=== PATIENT | female | born 1960 | race American Indian/Alaskan Native ===

== ENCOUNTER 2017-03-30 21:40 | Emergency (ER) | payer MEDICARE ==
[2017-03-30 22:45] VITALS: BP 171/106
[2017-03-30 23:09] LABS: Hematocrit 37.6 % (30.3-42.9); Hemoglobin 12.7 gm/dl (10.1-14.3); Mean Corpuscular HGB Conc 34 % (30-34); Mean Corpuscular Hemoglobin 31 pg (28-32); Mean Corpuscular Volume 91 fl (79-97); Platelet Count 355 K/mm3 (140-440); Red Blood Count 4.12 M/mm3 (3.65-5.03); White Blood Count 13.4 K/mm3 (4.5-11.0)
[2017-03-30 23:29] LABS: Anion Gap 24 mmol/L; BUN/Creatinine Ratio 13; Blood Urea Nitrogen 12 mg/dL (7-17); Calcium 9.3 mg/dL (8.4-10.2); Carbon Dioxide 24 mmol/L (22-30); Chloride 95.4 mmol/L (98-107); Glucose 113 mg/dL (65-100); Potassium 3.7 mmol/L (3.6-5.0); Sodium 140 mmol/L (137-145)
[2017-03-30 23:37] LABS: Urine Drugs of Abuse Note Disclamer
[2017-03-30 23:44] LABS: Blastocytes % (Manual) 0 %; Diff Status Complete; Platelet Estimate Consistent w Auto; RBC Morphology Normal
[2017-03-30 23:55] LABS: Bacteria,Urine 1+ /HPF (Negative); Bilirubin,Urine NEG (Negative); Blood,Urine NEG (Negative); Ketones,Urine NEG (Negative); Leukocyte Esterase,Urine MOD (Negative); Mucus,Urine FEW /HPF; Nitrite,Urine NEG (Negative); Protein,Urine <15 mg/dL mg/dL (Negative)
--- NOTE | 2017-03-31 08:42 | Emergency Department Report ---
ED General Adult HPI - General Chief complaint: Headache Stated complaint: H/A Time Seen by Provider: 03/31/17 06:18 Source: patient, family Mode of arrival: Ambulatory Limitations: No Limitations - History of Present Illness Initial comments: The patient is NOT complaining of a headache at all. Matter of fact she is asymptomatic. She states that she has run out of her blood pressure medicine. She is accompanied by a sister who is stating that they are having difficulty taking care of her. She has recently moved here from [place] the sister states a week ago but I think this is not actually accurate. She is currently under the care of a psychiatrist. According to the sister she has if her son is still alive not infrequently. However the son is "a drug addict and [place] ". The patient herself is not having any paranoid ideation. She is not agitated. She is committed act. she is not currently complaining of symptoms of depression or having any sort of suicidal ideation. -: Gradual Consistency: intermittent Improves with: none Worsens with: none Associated Symptoms: denies other symptoms - Related Data Home Medications Medication Instructions Recorded Confirmed Last Taken Aspirin [Aspirin TAB] 325 mg PO QDAY 09/02/14 06/07/16 09/02/14 Butalb/Acetamin/Caff 50-325-40 1 tab PO Q6HR PRN 08/18/15 06/07/16 Unknown [Fioricet] Nortriptyline [Pamelor] 50 mg PO QHS 08/18/15 06/07/16 Unknown Lyrica 1 tab PO DAILY 02/08/16 06/07/16 Unknown Fenofibrate [Lofibra] 54 mg PO QDAY 06/07/16 06/07/16 Unknown traMADol [Ultram] 50 mg PO Q12H PRN 06/07/16 06/07/16 Unknown Previous Rx's Medication Instructions Recorded Last Taken Type Simvastatin [Zocor TAB] 40 mg PO QHS #30 tablet 08/08/14 09/01/14 Rx oxyCODONE /ACETAMINOPHEN [Percocet 1 tab PO Q6HR PRN #10 tablet 02/08/16 Unknown Rx 5/325 mg] Gabapentin [Neurontin] 300 mg PO BID #60 capsule 03/31/17 Unknown Rx Lisinopril [Zestril TAB] 20 mg PO QDAY #30 tablet 03/31/17 Unknown Rx Nitrofurantoin Monohyd/M-Cryst 100 mg PO BID #10 capsule 03/31/17 Unknown Rx [Macrobid 100 mg Capsule] amLODIPine [Norvasc] 5 mg PO DAILY #30 tab 03/31/17 Unknown Rx Allergies Allergy/AdvReac Type Severity Reaction Status Date / Time Penicillins Allergy Rash Verified 01/24/15 18:51 ED Review of Systems ROS: Stated complaint: H/A Other details as noted in HPI Constitutional: denies: chills, fever Eyes: denies: eye pain, eye discharge, vision change ENT: denies: ear pain, throat pain Respiratory: denies: cough, shortness of breath, wheezing Cardiovascular: denies: chest pain, palpitations Endocrine: no symptoms reported Gastrointestinal: denies: abdominal pain, nausea, diarrhea Genitourinary: denies: urgency, dysuria, discharge Musculoskeletal: denies: back pain, joint swelling, arthralgia Skin: denies: rash, lesions Neurological: denies: headache, weakness, paresthesias Psychiatric: other (according to family paranoid ideation. The patient is not displaying this in the emergency department.). denies: anxiety, depression, auditory hallucinations, visual hallucinations, homicidal thoughts, suicidal thoughts Hematological/Lymphatic: denies: easy bleeding, easy bruising ED Past Medical Hx - Past Medical History Previous Medical History?: Yes Hx Hypertension: Yes Hx CVA: Yes (multiple CVAs per patient) Hx Congestive Heart Failure: No Hx Diabetes: Yes Hx Arthritis: Yes Hx Seizures: Yes Hx Asthma: No Additional medical history: chronic back and neck pain. anyerism. brain tumor - Surgical History Past Surgical History?: Yes Hx Cholecystectomy: Yes Additional Surgical History: Left ear surgery - Social History Smoking Status: Current Every Day Smoker Substance Use Type: None - Medications Home Medications: Home Medications Medication Instructions Recorded Confirmed Last Taken Type Simvastatin [Zocor TAB] 40 mg PO QHS #30 tablet 08/08/14 06/07/16 09/01/14 Rx Aspirin [Aspirin TAB] 325 mg PO QDAY 09/02/14 06/07/16 09/02/14 History Butalb/Acetamin/Caff 50-325-40 1 tab PO Q6HR PRN 08/18/15 06/07/16 Unknown History [Fioricet] Nortriptyline [Pamelor] 50 mg PO QHS 08/18/15 06/07/16 Unknown History Lyrica 1 tab PO DAILY 02/08/16 06/07/16 Unknown History oxyCODONE /ACETAMINOPHEN [Percocet 1 tab PO Q6HR PRN #10 tablet 02/08/16 Unknown Rx 5/325 mg] Fenofibrate [Lofibra] 54 mg PO QDAY 06/07/16 06/07/16 Unknown History traMADol [Ultram] 50 mg PO Q12H PRN 06/07/16 06/07/16 Unknown History Gabapentin [Neurontin] 300 mg PO BID #60 capsule 03/31/17 Unknown Rx Lisinopril [Zestril TAB] 20 mg PO QDAY #30 tablet 03/31/17 Unknown Rx Nitrofurantoin Monohyd/M-Cryst 100 mg PO BID #10 capsule 03/31/17 Unknown Rx [Macrobid 100 mg Capsule] amLODIPine [Norvasc] 5 mg PO DAILY #30 tab 03/31/17 Unknown Rx ED Physical Exam - General Limitations: No Limitations General appearance: alert, in no apparent distress - Head Head exam: Present: atraumatic, normocephalic - Eye Eye exam: Present: normal appearance - ENT ENT exam: Present: normal exam, mucous membranes moist - Neck Neck exam: Present: normal inspection. Absent: tenderness, meningismus - Respiratory Respiratory exam: Present: normal lung sounds bilaterally. Absent: respiratory distress - Cardiovascular Cardiovascular Exam: Present: regular rate, normal rhythm. Absent: systolic murmur, diastolic murmur, rubs, gallop - GI/Abdominal GI/Abdominal exam: Present: soft, normal bowel sounds. Absent: distended, tenderness, guarding, rebound, rigid - Extremities Exam Extremities exam: Present: normal inspection - Back Exam Back exam: Present: normal inspection - Neurological Exam Neurological exam: Present: alert, oriented X3, CN II-XII intact, normal gait. Absent: motor sensory deficit - Psychiatric Psychiatric exam: Present: normal affect, normal mood - Skin Skin exam: Present: warm, dry, intact, normal color. Absent: rash ED Course Vital Signs 03/30/17 22:32 Temperature 98.2 F Pulse Rate 82 Respiratory 18 Rate Blood Pressure 171/106 O2 Sat by Pulse 98 Oximetry - Reevaluation(s) Reevaluation #1: The patient has now been evaluated by the mental health counselor. She tells me that indeed, the patient is already at the care of a psychiatrist here locally. She confirms that there is no indication for hospitalization. Additionally she states that the family is ready to take the patient home. This visit seems to be largely the result of social issues. There is no criteria for mental health confinement. 03/31/17 08:41 ED Medical Decision Making - Lab Data Result diagrams: 03/30/17 22:56 03/30/17 22:56 Laboratory Results - last 24 hr 03/30/17 03/30/17 03/30/17 22:56 22:56 22:56 WBC 13.4 H RBC 4.12 Hgb 12.7 Hct 37.6 MCV 91 MCH 31 MCHC 34 RDW 14.0 Plt Count 355 Lymph # Forging Press Setter Up Add Manual Diff Complete Total Counted 100 Seg Neuts % (Manual) 59.0 Band Neutrophils % 0 Lymphocytes % (Manual) 33.0 Reactive Lymphs % (Man) 0 Monocytes % (Manual) 6.0 Eosinophils % (Manual) 1.0 Basophils % (Manual) 1.0 Metamyelocytes % 0 Myelocytes % 0 Promyelocytes % 0 Blast Cells % 0 Nucleated RBC % Not Reportable Seg Neutrophils # Man 7.9 H Band Neutrophils # 0.0 Lymphocytes # (Manual) 4.4 Abs React Lymphs (Man) 0.0 Monocytes # (Manual) 0.8 Eosinophils # (Manual) 0.1 Basophils # (Manual) 0.1 Metamyelocytes # 0.0 Myelocytes # 0.0 Promyelocytes # 0.0 Blast Cells # 0.0 WBC Morphology Not Reportable Hypersegmented Neuts Not Reportable Hyposegmented Neuts Not Reportable Hypogranular Neuts Not Reportable Smudge Cells Not Reportable Toxic Granulation Not Reportable Toxic Vacuolation Not Reportable Dohle Bodies Not Reportable Pelger-Huet Anomaly Not Reportable Sunday Rods Not Reportable Platelet Estimate Consistent w auto Clumped Platelets Not Reportable Plt Clumps, EDTA Not Reportable Large Platelets Not Reportable Giant Platelets Not Reportable Platelet Satelliting Not Reportable Plt Morphology Comment Not Reportable RBC Morphology Normal Dimorphic RBCs Not Reportable Polychromasia Not Reportable Hypochromasia Not Reportable Poikilocytosis Not Reportable Anisocytosis Not Reportable Microcytosis Not Reportable Macrocytosis Not Reportable Spherocytes Not Reportable Pappenheimer Bodies Not Reportable Sickle Cells Not Reportable Target Cells Not Reportable Tear Drop Cells Not Reportable Ovalocytes Not Reportable Helmet Cells Not Reportable [place] Bodies Not Reportable Weir Rings Not Reportable Rose Cells Not Reportable Bite Cells Not Reportable Crenated Cell Not Reportable Elliptocytes Not Reportable Acanthocytes (Spur) Not Reportable Rouleaux Not Reportable Hemoglobin C Crystals Not Reportable Schistocytes Not Reportable Malaria parasites Not Reportable Bryan Bodies Not Reportable Hem Pathologist Commnt No Sodium 140 Potassium 3.7 Chloride 95.4 L Carbon Dioxide 24 Anion Gap 24 BUN 12 Creatinine 0.9 Estimated GFR > 60 BUN/Creatinine Ratio 13 Glucose 113 H Calcium 9.3 Urine Color Urine Turbidity Urine pH Ur Specific [place] Urine Protein Urine Glucose (UA) Urine Ketones Urine Blood Urine Nitrite Urine Bilirubin Urine Urobilinogen Ur Leukocyte Esterase Urine WBC (Auto) Urine RBC (Auto) U Epithel Cells (Auto) Urine Bacteria (Auto) Hyaline Casts Urine Mucus Urine Opiates Screen Urine Methadone Screen Ur Barbiturates Screen Ur Phencyclidine Scrn Ur Amphetamines Screen U Benzodiazepines Scrn Urine Cocaine Screen U Marijuana (THC) Screen Drugs of Abuse Note Plasma/Serum Alcohol < 0.01 03/30/17 03/30/17 23:19 23:19 WBC RBC Hgb Hct MCV MCH MCHC RDW Plt Count Lymph # Add Manual Diff Total Counted Seg Neuts % (Manual) Band Neutrophils % Lymphocytes % (Manual) Reactive Lymphs % (Man) Monocytes % (Manual) Eosinophils % (Manual) Basophils % (Manual) Metamyelocytes % Myelocytes % Promyelocytes % Blast Cells % Nucleated RBC % Seg Neutrophils # Man Band Neutrophils # Lymphocytes # (Manual) Abs React Lymphs (Man) Monocytes # (Manual) Eosinophils # (Manual) Basophils # (Manual) Metamyelocytes # Myelocytes # Promyelocytes # Blast Cells # WBC Morphology Hypersegmented Neuts Hyposegmented Neuts Hypogranular Neuts Smudge Cells Toxic Granulation Toxic Vacuolation Dohle Bodies Pelger-Huet Anomaly Sunday Rods Platelet Estimate Clumped Platelets Plt Clumps, EDTA Large Platelets Giant Platelets Platelet Satelliting Plt Morphology Comment RBC Morphology Dimorphic RBCs Polychromasia Hypochromasia Poikilocytosis Anisocytosis Microcytosis Macrocytosis Spherocytes Pappenheimer Bodies Sickle Cells Target Cells Tear Drop Cells Ovalocytes Helmet Cells [place] Bodies Weir Rings Rose Cells Bite Cells Crenated Cell Elliptocytes Acanthocytes (Spur) Rouleaux Hemoglobin C Crystals Schistocytes Malaria parasites Bryan Bodies Hem Pathologist Commnt Sodium Potassium Chloride Carbon Dioxide Anion Gap BUN Creatinine Estimated GFR BUN/Creatinine Ratio Glucose Calcium Urine Color Yellow Urine Turbidity Clear Urine pH 5.[address] 1.013 Urine Protein <15 mg/dl Urine Glucose (UA) Neg Urine Ketones Neg Urine Blood Neg Urine Nitrite Neg Urine Bilirubin Neg Urine Urobilinogen 2.0 Ur Leukocyte Esterase Mod Urine WBC (Auto) 16.0 H Urine RBC (Auto) 4.0 U Epithel Cells (Auto) < 1.0 Urine Bacteria (Auto) 1+ Hyaline Casts 1 Urine Mucus Few Urine Opiates Screen Presumptive negative Urine Methadone Screen Presumptive negative Ur Barbiturates Screen Presumptive negative Ur Phencyclidine Scrn Presumptive negative Ur Amphetamines Screen Presumptive negative U Benzodiazepines Scrn Presumptive negative Urine Cocaine Screen Presumptive negative U Marijuana (THC) Screen Presumptive negative Drugs of Abuse Note Disclamer Plasma/Serum Alcohol Critical care attestation.: If time is entered above; I have spent that time in minutes in the direct care of this critically ill patient, excluding procedure time. ED Disposition Clinical Impression: Psychiatric disorder Hypertension Qualifiers: Hypertension type: essential hypertension Qualified Code(s): I10 - Essential ( primary) hypertension UTI (urinary tract infection) Qualifiers: Urinary tract infection type: site unspecified Hematuria presence: without hematuria Qualified Code(s): N39.0 - Urinary tract infection, site not specified Disposition: DC-01 TO HOME OR SELFCARE Is pt being admited?: No Does the pt Need Aspirin: No Condition: Stable Instructions: Hypertension (ED) Additional Instructions: Follow-up with the urinary usual psychiatrist. You appeared to have a mild urinary infection. Given urine antibiotic. I have also renewed your blood pressure medicine. He must follow-up with a primary care provider. If you do not have one he might consider [facility] or Dr. Lashell Archer who is environmental programs specialist Prescriptions: amLODIPine [Norvasc] 5 mg PO DAILY #30 tab Gabapentin [Neurontin] 300 mg PO BID #60 capsule Lisinopril [Zestril TAB] 20 mg PO QDAY #30 tablet Nitrofurantoin Monohyd/M-Cryst [Macrobid 100 mg Capsule] 100 mg PO BID #10 capsule Referrals: PRIMARY CARE, [Primary Care Provider] - 3-5 Days ADRIANA ARCHER MD [Staff Physician] - 3-5 Days [facility] [Provider Group] - 3-5 Days usual, psychiatrist [Other] - 2-3 Days Time of Disposition: 08:47
== END 2017-03-31 09:08 | disposition home or self-care (01) ==
LOC: ED 21:40
DX: I10 Essential (primary) hypertension (principal); N39.0 Urinary tract infection, site not specified; E11.9 Type 2 diabetes mellitus without complications; F17.200 Nicotine dependence, unspecified, uncomplicated
CPT/HCPCS: 36415; 80048; 80307; 81001; 85007; 85025; 99283; G0480; 80320

== ENCOUNTER 2017-10-04 23:10 | Emergency (ER) | payer MEDICARE ==
[2017-10-04 23:33] LABS: Hematocrit 38.5 % (30.3-42.9); Hemoglobin 12.6 gm/dl (10.1-14.3); Mean Corpuscular HGB Conc 33 % (30-34); Mean Corpuscular Hemoglobin 30 pg (28-32); Mean Corpuscular Volume 92 fl (79-97); Platelet Count 283 K/mm3 (140-440); Red Cell Distribution Width 14.6 % (13.2-15.2)
[2017-10-04 23:43] LABS: INR 0.92 (0.87-1.13)
[2017-10-04 23:45] LABS: BUN/Creatinine Ratio 21; Blood Urea Nitrogen 19 mg/dL (7-17); Calcium 8.8 mg/dL (8.4-10.2); Hemolysis Index 0
--- NOTE | 2017-10-04 23:50 | Emergency Department Report ---
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 Pt's speech is garbled and difficult to understand. Pt had almost fallen, was stumbling, but did not fall. Pt 's sister stated this is the same presentation that the pt had in the past with her speech. Pt does drink alcohol per the sister and sister stated the pt does things that she is "hard-headed" and does what she wants even though it is not good for her health. Pt states she does smoke.Pt sees Dr Awad as her neurologist. Last Observed Normal: 21:30 Location: speech History of same: Yes (pt states that she had left sided weakness in the past) - Related Data Home Medications: Home Medications Medication Instructions Recorded Confirmed Last Taken Aspirin [Aspirin TAB] 325 mg PO QDAY 09/02/14 06/07/16 09/02/14 Butalb/Acetamin/Caff 50-325-40 1 tab PO Q6HR PRN 08/18/15 06/07/16 Unknown [Fioricet] Nortriptyline [Pamelor] 50 mg PO QHS 08/18/15 06/07/16 Unknown Lyrica 1 tab PO DAILY 02/08/16 06/07/16 Unknown Fenofibrate [Lofibra] 54 mg PO QDAY 06/07/16 06/07/16 Unknown traMADol [Ultram] 50 mg PO Q12H PRN 06/07/16 06/07/16 Unknown Previous Rx's Medication Instructions Recorded Last Taken Type Simvastatin [Zocor TAB] 40 mg PO QHS #30 tablet 08/08/14 09/01/14 Rx oxyCODONE /ACETAMINOPHEN [Percocet 1 tab PO Q6HR PRN #10 tablet 02/08/16 Unknown Rx 5/325 mg] Gabapentin [Neurontin] 300 mg PO BID #60 capsule 03/31/17 Unknown Rx Lisinopril [Zestril TAB] 20 mg PO QDAY #30 tablet 03/31/17 Unknown Rx Nitrofurantoin Monohyd/M-Cryst 100 mg PO BID #10 capsule 03/31/17 Unknown Rx [Macrobid 100 mg Capsule] amLODIPine [Norvasc] 5 mg PO DAILY #30 tab 03/31/17 Unknown Rx Allergies/Adverse Reactions: Allergies Allergy/AdvReac Type Severity Reaction Status Date / Time Penicillins Allergy Rash Verified 01/24/15 18:51 ED Review of Systems ROS: Stated complaint: POSSIBLE CVA Other details as noted in HPI Comment: Unobtainable due to pts medical conditions ED Past Medical Hx - Past Medical History Previous Medical History?: Yes Hx Hypertension: Yes Hx CVA: Yes (multiple CVAs per patient) Hx Congestive Heart Failure: No Hx Diabetes: Yes Hx Arthritis: Yes Hx Seizures: Yes Hx Asthma: No Additional medical history: chronic back and neck pain. anyerism. brain tumor (meningioma ) - Surgical History Past Surgical History?: Yes Hx Cholecystectomy: Yes Additional Surgical History: Left ear surgery - Social History Smoking Status: Current Every Day Smoker Substance Use Type: None - Medications Home Medications: Home Medications Medication Instructions Recorded Confirmed Last Taken Type Simvastatin [Zocor TAB] 40 mg PO QHS #30 tablet 08/08/14 06/07/16 09/01/14 Rx Aspirin [Aspirin TAB] 325 mg PO QDAY 09/02/14 06/07/16 09/02/14 History Butalb/Acetamin/Caff 50-325-40 1 tab PO Q6HR PRN 08/18/15 06/07/16 Unknown History [Fioricet] Nortriptyline [Pamelor] 50 mg PO QHS 08/18/15 06/07/16 Unknown History Lyrica 1 tab PO DAILY 02/08/16 06/07/16 Unknown History oxyCODONE /ACETAMINOPHEN [Percocet 1 tab PO Q6HR PRN #10 tablet 02/08/16 Unknown Rx 5/325 mg] Fenofibrate [Lofibra] 54 mg PO QDAY 06/07/16 06/07/16 Unknown History traMADol [Ultram] 50 mg PO Q12H PRN 06/07/16 06/07/16 Unknown History Gabapentin [Neurontin] 300 mg PO BID #60 capsule 03/31/17 Unknown Rx Lisinopril [Zestril TAB] 20 mg PO QDAY #30 tablet 03/31/17 Unknown Rx Nitrofurantoin Monohyd/M-Cryst 100 mg PO BID #10 capsule 03/31/17 Unknown Rx [Macrobid 100 mg Capsule] amLODIPine [Norvasc] 5 mg PO DAILY #30 tab 03/31/17 Unknown Rx ED Neuro Physical Exam - General Limitations: No Limitations General appearance: alert, in no apparent distress - Eye Eye exam: Present: normal appearance, PERRL - ENT ENT exam: Present: normal exam, normal orophraynx - Neck Neck exam: Present: normal inspection - Respiratory Respiratory exam: Present: normal lung sounds bilaterally - Cardiovascular Cardiovascular Exam: Present: regular rate, normal rhythm ED Course Vital Signs 10/04/17 10/04/17 10/04/17 23:10 23:40 23:46 Temperature 98.1 F Pulse Rate 81 77 74 Respiratory 16 14 15 Rate Blood Pressure 135/95 O2 Sat by Pulse 95 97 97 Oximetry 10/05/17 10/05/17 10/05/17 00:00 00:16 00:30 Temperature Pulse Rate 76 75 74 Respiratory 15 20 18 Rate Blood Pressure 169/89 169/89 169/87 O2 Sat by Pulse 95 94 96 Oximetry 10/05/17 00:45 Temperature Pulse Rate 71 Respiratory 20 Rate Blood Pressure 150/65 O2 Sat by Pulse 96 Oximetry - Lab Data Result diagrams: 10/04/17 23:21 10/04/17 23:21 Lab Results 10/04/17 10/04/17 10/04/17 Range/Units 23:21 23:21 23:21 WBC 11.4 H (4.5-11.0) K/mm3 RBC 4.20 (3.65-5.03) M/mm3 Hgb 12.6 (10.1-14.3) gm/dl Hct 38.5 (30.3-42.9) % MCV 92 (79-97) fl MCH 30 (28-32) pg MCHC 33 (30-34) % RDW 14.6 (13.2-15.2) % Plt Count 283 (140-440) K/mm3 Lymph # [employer] Supervisor Add Manual Diff Complete Total Counted 100 Seg Neuts % (Manual) 43.0 (40.0-70.0) % Band Neutrophils % 0 % Lymphocytes % (Manual) 48.0 H (13.4-35.0) % Reactive Lymphs % (Man) 0 % Monocytes % (Manual) 5.0 (0.0-7.3) % Eosinophils % (Manual) 3.0 (0.0-4.3) % Basophils % (Manual) 1.0 (0.0-1.8) % Metamyelocytes % 0 % Myelocytes % 0 % Promyelocytes % 0 % Blast Cells % 0 % Nucleated RBC % Not Reportable Seg Neutrophils # Man 4.9 (1.8-7.7) K/mm3 Band Neutrophils # 0.0 K/mm3 Lymphocytes # (Manual) 5.5 H (1.2-5.4) K/mm3 Abs React Lymphs (Man) 0.0 K/mm3 Monocytes # (Manual) 0.6 (0.0-0.8) K/mm3 Eosinophils # (Manual) 0.3 (0.0-0.4) K/mm3 Basophils # (Manual) 0.1 (0.0-0.1) K/mm3 Metamyelocytes # 0.0 K/mm3 Myelocytes # 0.0 K/mm3 Promyelocytes # 0.0 K/mm3 Blast Cells # 0.0 K/mm3 WBC Morphology Not Reportable Hypersegmented Neuts Not Reportable Hyposegmented Neuts Not Reportable Hypogranular Neuts Not Reportable Smudge Cells Not Reportable Toxic Granulation Not Reportable Toxic Vacuolation Not Reportable Dohle Bodies Not Reportable Pelger-Huet Anomaly Not Reportable Sunday Rods Not Reportable Platelet Estimate Consistent w auto Clumped Platelets Not Reportable Plt Clumps, EDTA Not Reportable Large Platelets Not Reportable Giant Platelets Not Reportable Platelet Satelliting Not Reportable Plt Morphology Comment Not Reportable RBC Morphology Normal Dimorphic RBCs Not Reportable Polychromasia Not Reportable Hypochromasia Not Reportable Poikilocytosis Not Reportable Anisocytosis Not Reportable Microcytosis Not Reportable Macrocytosis Not Reportable Spherocytes Not Reportable Pappenheimer Bodies Not Reportable Sickle Cells Not Reportable Target Cells Not Reportable Tear Drop Cells Not Reportable Ovalocytes Not Reportable Helmet Cells Not Reportable [place] Bodies Not Reportable [place] Rings Not Reportable [place] Cells Not Reportable Bite Cells Not Reportable Crenated Cell Not Reportable Elliptocytes Not Reportable Acanthocytes (Spur) Not Reportable Rouleaux Not Reportable Hemoglobin C Crystals Not Reportable Schistocytes Not Reportable Malaria parasites Not Reportable Bryan Bodies Not Reportable Hem Pathologist Commnt No PT 12.8 (12.2-14.9) Sec. INR 0.92 (0.87-1.13) APTT 30.0 (24.2-36.6) Sec. Thrombin Time (15.1-19.6) Sec. Sodium 137 (137-145) mmol/L Potassium 3.9 (3.6-5.0) mmol/L Chloride 99.8 (98-107) mmol/L Carbon Dioxide 23 (22-30) mmol/L Anion Gap 18 mmol/L BUN 19 H (7-17) mg/dL Creatinine 0.9 (0.7-1.2) mg/dL Estimated GFR > 60 ml/min BUN/Creatinine Ratio 21 % Glucose 95 (65-100) mg/dL Calcium 8.8 (8.4-10.2) mg/dL Troponin T < 0.010 (0.00-0.029) ng/mL 10/04/17 Range/Units 23:21 WBC (4.5-11.0) K/mm3 RBC (3.65-5.03) M/mm3 Hgb (10.1-14.3) gm/dl Hct (30.3-42.9) % MCV (79-97) fl MCH (28-32) pg MCHC (30-34) % RDW (13.2-15.2) % Plt Count (140-440) K/mm3 Lymph # Add Manual Diff Total Counted Seg Neuts % (Manual) (40.0-70.0) % Band Neutrophils % % Lymphocytes % (Manual) (13.4-35.0) % Reactive Lymphs % (Man) % Monocytes % (Manual) (0.0-7.3) % Eosinophils % (Manual) (0.0-4.3) % Basophils % (Manual) (0.0-1.8) % Metamyelocytes % % Myelocytes % % Promyelocytes % % Blast Cells % % Nucleated RBC % Seg Neutrophils # Man (1.8-7.7) K/mm3 Band Neutrophils # K/mm3 Lymphocytes # (Manual) (1.2-5.4) K/mm3 Abs React Lymphs (Man) K/mm3 Monocytes # (Manual) (0.0-0.8) K/mm3 Eosinophils # (Manual) (0.0-0.4) K/mm3 Basophils # (Manual) (0.0-0.1) K/mm3 Metamyelocytes # K/mm3 Myelocytes # K/mm3 Promyelocytes # K/mm3 Blast Cells # K/mm3 WBC Morphology Hypersegmented Neuts Hyposegmented Neuts Hypogranular Neuts Smudge Cells Toxic Granulation Toxic Vacuolation Dohle Bodies Pelger-Huet Anomaly Sunday Rods Platelet Estimate Clumped Platelets Plt Clumps, EDTA Large Platelets Giant Platelets Platelet Satelliting Plt Morphology Comment RBC Morphology Dimorphic RBCs Polychromasia Hypochromasia Poikilocytosis Anisocytosis Microcytosis Macrocytosis Spherocytes Pappenheimer Bodies Sickle Cells Target Cells Tear Drop Cells Ovalocytes Helmet Cells [place] Bodies [place] Rings Rose Cells Bite Cells Crenated Cell Elliptocytes Acanthocytes (Spur) Rouleaux Hemoglobin C Crystals Schistocytes Malaria parasites Bryan Bodies Hem Pathologist Commnt PT (12.2-14.9) Sec. INR (0.87-1.13) APTT (24.2-36.6) Sec. Thrombin Time 15.9 (15.1-19.6) Sec. Sodium (137-145) mmol/L Potassium (3.6-5.0) mmol/L Chloride (98-107) mmol/L Carbon Dioxide (22-30) mmol/L Anion Gap mmol/L BUN (7-17) mg/dL Creatinine (0.7-1.2) mg/dL Estimated GFR ml/min BUN/Creatinine Ratio % Glucose (65-100) mg/dL Calcium (8.4-10.2) mg/dL Troponin T (0.00-0.029) ng/mL - EKG Data -: EKG Interpreted by Me EKG shows normal: sinus rhythm Rate: normal Interpretation: no acute changes - Medical Decision Making * I am speaking with Dr Awad at 0014; Dr Guillen is revieweing his records on this pt;he noted pt had right sided weakness in the past; he stated pt had a small aneurysm and a meningioma; he stated that he would give the TPA and that he wasn 't aware of that being a contraindication to giving TPA. He stated that I could run it by Teleneurology 0034-awaiting Dr Tiwari to call back I spoke with Dr Tiwari and he recommended CTA which was ordered; the correctional maintenance technician informed me that the pt told her that she had hives when she received contrast in the past, so CTA brain was not done. 0017-Dr Cedillo(admitting hospitalist) is here seeing pt and states that he is discharging the pt as he does not feel the pt had an acute stroke and that all her symtoms are old; I was admitting the pt, but Dr Cedillo feels pt should be discharged . I also did inform Dr Tiwari of this plan . - Differential Diagnosis cva, tia, cerebral - Thrombolytic Inclusion/Exclusion Thrombolytic Contraindications: Hx of ICH/AVM/Aneurysms Critical care attestation.: If time is entered above; I have spent that time in minutes in the direct care of this critically ill patient, excluding procedure time. ED Disposition Clinical Impression: Speech abnormality, Right sided weakness Disposition: DC-[id number] OP ADMIT IP TO THIS HOSP Is pt being admited?: Yes Does the pt Need Aspirin: Yes Condition: Stable
--- NOTE | 2017-10-04 23:59 | Cat Scan Report ---
FINAL REPORT EXAM: CT HEAD/BRAIN WO CON HISTORY: neuro deficits < 6hrs or sx present upon awakening SLURRE SPEECH TECHNIQUE: CT was performed from the foramen magnum through the vertex in the axial plane without the use of intravenous contrast. PRIORS: 06/07/2016 and 08/18/2015 FINDINGS: There is a stable 1.2 cm calcified left temporal dural-based mass most likely representing a meningioma. The vasquez/white matter attenuation pattern is normal. There are no abnormal extra-axial fluid collections. There is no evidence of acute intracranial hemorrhage or infarct. The ventricles are of normal size and configuration. The skull and orbits are unremarkable. The visualized paranasal sinuses are clear. IMPRESSION: No acute findings Stable 1.2 cm calcified left temporal dural-based mass most likely representing a meningioma. A verbal report was given by phone by Damon Horn to Dr. Rodriguez at 11:51 p.m. eastern daylight time.
[2017-10-05 00:21] LABS: Platelet Estimate Consistent w Auto; RBC Morphology Normal; Total Cells Counted 100
[2017-10-05] MEDS ORDERED: BABY ASPIRIN PO ONE (00:54)
--- NOTE | 2017-10-05 01:16 | Event Note ---
Date: 10/05/17 Patient with Dysarthria and rt sided Weakness No new deficits Rt Hemiparesis d/c Home f/u with Dr Awad
[2017-10-05 01:26] VITALS: BP 156/68
== END 2017-10-05 02:25 | disposition admitted as inpatient to this hospital (09) ==
LOC: ED 23:10
DX: R53.1 Weakness (principal); R47.81 Slurred speech; I10 Essential (primary) hypertension; E11.9 Type 2 diabetes mellitus without complications; F17.200 Nicotine dependence, unspecified, uncomplicated
CPT/HCPCS: 36415; 70450; 80048; 84484; 85007; 85025; 85610; 85670; 85730; 93005; 93010

== ENCOUNTER 2018-11-16 09:07 | Outpatient (CLI) | payer OTHER, MEDICARE ==
--- NOTE | 2018-11-16 09:51 | Mammography Report ---
Left mammogram: Call back for left asymmetry. No prior exams. Spot CC compression, rolled CC views and lateral whole breast compression imaging obtained. Additional images shows no suspicious findings or significant asymmetry. Impression: Benign findings. Recommendation: Annual mammogram followup. BI-RADS CATEGORY: 2 = Benign ACR BI-RADS MAMMOGRAPHIC CODES: 0 = Needs additional imaging evaluation; 1 = Negative; 2 = Benign; 3 = Probably benign; 4 = Suspicious; 5 = Malignant; 6 = Known biopsy-proven malignancy COMMENT: 1. Dense breast tissue, i.e., adenosis, fibrocystic changes, etc., may obscure an underlying neoplasm. 2. Approximately 10% of cancers are not detected with mammography. 3. A negative mammography report should not delay biopsy if a clinically suspicious mass is present.
== END 2018-11-16 09:08 | disposition home or self-care (01) ==
LOC: MAMMO 09:07
PROVIDERS: ATTEND Internal Medicine
DX: R92.8 Other abnormal and inconclusive findings on diagnostic imaging of breast (principal); I10 Essential (primary) hypertension; E78.00 Pure hypercholesterolemia, unspecified; E78.5 Hyperlipidemia, unspecified; Z90.49 Acquired absence of other specified parts of digestive tract

== ENCOUNTER 2022-02-16 11:46 | Inpatient (IN) | payer MEDICARE ==
--- NOTE | 2022-02-16 12:50 | Cat Scan Report ---
CT head/brain wo con INDICATION: Stroke symptoms. TECHNIQUE: CT head. All CT scans at this location are performed using CT dose reduction for ALARA by means of automated exposure control. COMPARISON: None. FINDINGS: Intracranial: Newell-white matter differentiation is maintained. No intracranial hemorrhage. No extra a xial collection. No hydrocephalus. No herniation. Sinuses: Paranasal sinuses and mastoid air cells are essentially clear. Orbits: Globes are intact. Calvarium: No acute fracture. IMPRESSION: 1. No acute intracranial abnormality. Signer Name: Kai Grey MD Signed: 02/16/2022 12:46 PM Workstation Name: [id number]
[2022-02-16 13:49] LABS: Basophils # (Auto) 0.1 K/mm3 (0.0-0.1); Basophils % (Auto) 0.7 % (0.0-1.8); Eosinophils # (Auto) 0.4 K/mm3 (0.0-0.4); Hematocrit 41.2 % (30.3-42.9); Hemoglobin 13.8 gm/dl (10.1-14.3); Lymphocytes # (Auto) 2.9 K/mm3 (1.2-5.4); Mean Corpuscular HGB Conc 34 % (30-34); Mean Corpuscular Volume 91 fl (79-97); Monocytes # (Auto) 0.3 K/mm3 (0.0-0.8); Monocytes % (Auto) 4.1 % (0.0-7.3); Platelet Count 347 K/mm3 (140-440); Red Blood Count 4.54 M/mm3 (3.65-5.03); Red Cell Distribution Width 14.8 % (13.2-15.2)
[2022-02-16 13:58] LABS: INR 0.9 (0.87-1.13)
[2022-02-16 13:59] LABS: Partial Thromboplastin Time 32.3 Sec. (24.2-36.6); Thrombin Time 17.4 Sec. (15.1-19.6)
[2022-02-16 14:20] LABS: Creatine Kinase MB 1.5 ng/mL (0.0-4.0)
[2022-02-16 14:24] LABS: Alanine Aminotransferase 12 units/L (7-56); Albumin 4.5 g/dL (3.9-5); BUN/Creatinine Ratio 11; Blood Urea Nitrogen 11 mg/dL (7-17); Calcium 9.3 mg/dL (8.4-10.2); Hemolysis Index 6
--- NOTE | 2022-02-16 18:17 | Electrocardiograph Report ---
[facility] Test Date: 2022-02-16 Test Time: 12:11:00 Pat Name: DANIEL MORAN Department: Room: Gender: F Brick Carrier: [id number] : 1960 Requested By: ED DOC Order Number: [id number] Reading MD: Jasmin Tanner Measurements Intervals [place] Rate: 78 P: 54 SD: 162 QRS: 49 QRSD: 82 T: 50 QT: 394 QTc: 451 Interpretive Statements Sinus rhythm Probable left atrial enlargement No previous ECG available for comparison Electronically Signed On 02-16-2022 18:17:11 EDT by Jasmin Tanner
--- NOTE | 2022-02-17 02:03 | Emergency Department Report ---
HPI - General Chief Complaint: Neuro Symptoms/Deficit Time Seen by Provider: 02/17/22 01:38 - HPI HPI: Room 23 Patient is a 61-year-old female present with chief complaint of headache left- sided weakness. Patient states for the past 2 weeks she has had increased weakness of her left upper and left lower extremity. Patient states she has residual weakness on the left side from previous CVAs but over the past 2 weeks this weakness has increased. Patient states last week she had episode of aphasia that lasted 2 minutes. Patient states this morning she had an episode of dysarthria that lasted several minutes. Patient states she is had a frontal headache for the past 2 nights. The patient states she has not been compliant with her Plavix for several months ED Past Medical Hx - Past Medical History Hx Hypertension: Yes Hx CVA: Yes (multiple CVAs per patient) Hx Diabetes: Yes Hx Arthritis: Yes Hx Seizures: Yes Additional medical history: chronic back and neck pain. anyerism. brain tumor (meningioma ) - Surgical History Hx Cholecystectomy: Yes Additional Surgical History: Left ear surgery - Family History Family history: no significant - Social History Smoking Status: Current Every Day Smoker (1/2 pack/day) Substance Use Type: None (Denies illicit drug use), Alcohol (Occasional) - Medications Home Medications: Home Medications Medication Instructions Recorded Confirmed Last Taken Type Simvastatin (Nf) [Zocor TAB] 40 mg PO QHS #30 tablet 08/08/14 06/07/16 09/01/14 Rx Aspirin 325 mg PO QDAY 09/02/14 06/07/16 09/02/14 History Butalb/Acetamin/Caff 50-325-40 1 tab PO Q6HR PRN 08/18/15 06/07/16 Unknown History [Fioricet] Nortriptyline [Pamelor] 50 mg PO QHS 08/18/15 06/07/16 Unknown History Lyrica 1 tab PO DAILY 02/08/16 06/07/16 Unknown History oxyCODONE /ACETAMINOPHEN [Percocet 1 tab PO Q6HR PRN #10 tablet 02/08/16 06/07/16 Unknown Rx 5/325 mg] Fenofibrate [Lofibra] 54 mg PO QDAY 06/07/16 06/07/16 Unknown History traMADoL [Ultram] 50 mg PO Q12H PRN 06/07/16 06/07/16 Unknown History Gabapentin 300 mg PO BID #60 capsule 03/31/17 Unknown Rx Nitrofurantoin Monohyd/M-Cryst 100 mg PO BID #10 capsule 03/31/17 Unknown Rx [Macrobid 100 mg Capsule] amLODIPine 5 mg PO DAILY #30 tab 03/31/17 Unknown Rx lisinopriL [Zestril TAB] 20 mg PO QDAY #30 tablet 03/31/17 Unknown Rx ED Review of Systems ROS: Stated complaint: POSSIBLE STROKE Other details as noted in HPI Constitutional: no symptoms reported Eyes: denies: eye pain ENT: denies: throat pain Respiratory: wheezing Cardiovascular: denies: chest pain Endocrine: no symptoms reported Gastrointestinal: denies: abdominal pain Genitourinary: denies: dysuria Musculoskeletal: denies: back pain Neurological: headache, weakness Physical Exam - Physical Exam Vital Signs: Vital Signs 02/16/22 12:12 Temperature 98.5 F Pulse Rate 66 Respiratory 18 Rate Blood Pressure 153/107 [Left] O2 Sat by Pulse 99 Oximetry Physical Exam: GENERAL: The patient is well-developed well-nourished female lying on stretcher not appearing to be in acute distress. [] HEENT: Normocephalic. Atraumatic. Extraocular motions are intact. Patient has moist mucous membranes. NECK: Supple. Trachea midline CHEST/LUNGS: Faint end expiratory wheezing right upper lobe. There is no respiratory distress noted. HEART/CARDIOVASCULAR: Regular. There is no tachycardia. There is no gallop rub or murmur. ABDOMEN: Abdomen is soft, nontender. Patient has normal bowel sounds. There is no abdominal distention. SKIN: There is no rash. There is no edema. There is no diaphoresis. NEURO: The patient is awake, alert, and oriented. The patient is cooperative. Cranial nerves II through XII grossly intact. The patient has normal speech. P atient is able to hold right upper extremity at 45 degree angle for 10-second count without drift. Patient is able to hold left upper extremity at 45 degree angle for 10-second count however it drifts but does not go completely to the bed. Patient able to raise right lower extremity up to 30 degree angle but it drifts back to the bed before 5-second count. Patient able to raise left lower extremity to 30 degree angle but it drifts back to the bed before 5-second count. GCS 15 NIHSS= 3 MUSCULOSKELETAL: There is no evidence of acute injury. ED Course Vital Signs 02/16/22 12:12 Temperature 98.5 F Pulse Rate 66 Respiratory 18 Rate Blood Pressure 153/107 [Left] O2 Sat by Pulse 99 Oximetry ED Medical Decision Making - Lab Data Result diagrams: 02/16/22 12:28 02/16/22 12:28 Laboratory Tests 02/16/22 02/16/22 02/16/22 12:07 12:28 12:28 WBC 7.6 RBC 4.54 Hgb 13.8 Hct 41.2 MCV 91 MCH 31 MCHC 34 RDW 14.8 Plt Count 347 Lymph % (Auto) 38.0 H Gage % (Auto) 4.1 Eos % (Auto) 5.0 H Baso % (Auto) 0.7 Lymph # (Auto) 2.9 Gage # (Auto) 0.3 Eos # (Auto) 0.4 Baso # (Auto) 0.1 Seg Neutrophils % 52.2 Seg Neutrophils # 4.0 PT 13.1 INR 0.90 APTT 32.3 Thrombin Time 17.4 Sodium Potassium Chloride Carbon Dioxide Anion Gap BUN Creatinine Estimated GFR BUN/Creatinine Ratio Glucose POC Glucose 125 H Calcium Total Bilirubin AST ALT Alkaline Phosphatase Total Creatine Kinase CK-MB (CK-2) CK-MB (CK-2) Rel Index Troponin T Total Protein Albumin Albumin/Globulin Ratio 02/16/22 12:28 WBC RBC Hgb Hct MCV MCH MCHC RDW Plt Count Lymph % (Auto) Gage % (Auto) Eos % (Auto) Baso % (Auto) Lymph # (Auto) Gage # (Auto) Eos # (Auto) Baso # (Auto) Seg Neutrophils % Seg Neutrophils # PT INR APTT Thrombin Time Sodium 140 Potassium 4.1 Chloride 102.7 Carbon Dioxide 24 Anion Gap 17 BUN 11 Creatinine 1.0 Estimated GFR > 60 BUN/Creatinine Ratio 11 Glucose 119 H POC Glucose Calcium 9.3 Total Bilirubin 0.30 AST 13 ALT 12 Alkaline Phosphatase 126 Total Creatine Kinase 131 CK-MB (CK-2) 1.5 CK-MB (CK-2) Rel Index 1.1 Troponin T < 0.010 Total Protein 7.4 Albumin 4.5 Albumin/Globulin Ratio 1.6 - EKG Data -: EKG Interpreted by Md EKG shows normal: sinus rhythm Rate: normal - EKG Data When compared to previous EKG there are: previous EKG unavailable Interpretation: other (No ischemic changes seen) - Radiology Data Radiology results: report reviewed (CT head), image reviewed (CT head) [facility] [address] [place] [address] Cat Scan Report Signed Patient: DANIEL MORAN MR#: [id number] : 1960 Acct:[id number] Age/Sex: 61 / F ADM Date: 02/16/22 Loc: ED Attending Dr: Ordering Physician: KALPESH SALAZAR MD Date of Service: 02/16/22 Procedure(s): CT head/brain wo con Accession Number(s): [id number] cc: KALPESH SALAZAR MD CT head/brain wo con INDICATION: Stroke symptoms. TECHNIQUE: CT head. All CT scans at this location are performed using CT dose reduction for ALARA by means of automated exposure control. COMPARISON: None. FINDINGS: Intracranial: Newell-white matter differentiation is maintained. No intracranial hemorrhage. No extra axial collection. No hydrocephalus. No herniation. Sinuses: Paranasal sinuses and mastoid air cells are essentially clear. Orbits: Globes are intact. Calvarium: No acute fracture. IMPRESSION: 1. No acute intracranial abnormality. Signer Name: Kai Grey MD Signed: 02/16/2022 12:46 PM Workstation Name: [id number] Transcribed By: NAZARIO Dictated By: Kai Grey MD Electronically Authenticated By: Kai Grey MD Signed Date/Time: 02/16/22 1246 DD/ 1245 TD/TT: - Differential Diagnosis CVA, TIA, COPD exacerbation Critical care attestation.: If time is entered above; I have spent that time in minutes in the direct care of this critically ill patient, excluding procedure time. ED Disposition Clinical Impression: CVA (cerebral vascular accident), COPD exacerbation Disposition: ADMITTED INPATIENT Is pt being admited?: Yes Does the pt Need Aspirin: Yes Condition: Fair Instructions: Chronic Obstructive Pulmonary Disease (ED) Time of Disposition: 02:10 (Care transferred to hospitalist (Dr. Bruce))
[2022-02-17] MEDS ORDERED: IPRATROPIUM/ALBUTEROL SULFATE 3 ML AMPUL.NEB IH ONE (02:05)
[2022-02-17] MEDS ORDERED: ASPIRIN 325 MG TAB PO ONE (02:07)
[2022-02-17] MEDS ORDERED: CLOPIDOGREL 300 MG TAB PO ONE (02:07)
[2022-02-17] MEDS ORDERED: DEXTROSE 50% IN WATER (25GM) 50 ML SYRINGE IV PRN (05:10)
[2022-02-17] MEDS ORDERED: METOCLOPRAMIDE 10 MG TAB PO PRN (05:10)
[2022-02-17] MEDS ORDERED: MORPHINE 4 MG/1 ML INJ IV PRN ×2 (05:10)
[2022-02-17] MEDS ORDERED: PROMETHAZINE 25 MG RECT SUPP PR PRN (05:10)
[2022-02-17] MEDS ORDERED: ONDANSETRON 4 MG/2 ML INJ IV PRN ×2 (05:10)
[2022-02-17] MEDS ORDERED: ACETAMINOPHEN 325 MG TAB PO PRN ×2 (05:10)
[2022-02-17] MEDS ORDERED: MORPHINE 2 MG/1 ML INJ IV PRN ×2 (05:10)
[2022-02-17] MEDS ORDERED: MAGNESIUM HYDROXIDE (MOM) ORAL LIQD UDC PO PRN ×2 (05:10)
--- NOTE | 2022-02-17 05:26 | History and Physical Report ---
History of Present Illness Date of examination: 02/17/22 Date of admission: 02/17/2022 Chief complaint: Headache Left-sided weakness History of present illness: 61-year-old female with known history of multiple CVAs, pretension, diabetes mellitus and history of seizure disorder presenting to the emergency room today planing of headache and left-sided weakness. Patient has had residual weakness on the left side from a previous stroke however, weakness has increased over the past few days. Patient denies any blurry vision denies any diaphoresis. Over the past week patient has had episode of aphasia which lasted for few minutes. She has also had occasional difficulty with her speech lasting few minutes. Patient admits that she has not been quite compliant with Plavix over the past few months. She denies any chest pain or shortness of breath, no nausea or vomiting and no abdominal pain. Work-up in the emergency room today, CT of the head shows no acute abnormality. EKG was unremarkable. Labs were unremarkable. Patient admitted and will be worked up for possible CVA. Past History Past Medical History: arthritis, diabetes, hypertension, seizures, stroke, other (chronic back and neck pain. anyerism. brain tumor (meningioma )) Past Surgical History: cholecystectomy, Other (Left ear surgery) Social history: smoking (Current daily smoker), alcohol abuse (Drinks alcohol occasionally) Family history: no significant family history Medications and Allergies Allergies Allergy/AdvReac Type Severity Reaction Status Date / Time Penicillins Allergy Rash Verified 02/16/22 12:14 Home Medications Medication Instructions Recorded Confirmed Last Taken Type Simvastatin (Nf) [Zocor TAB] 40 mg PO QHS #30 tablet 08/08/14 06/07/16 09/01/14 Rx Aspirin 325 mg PO QDAY 09/02/14 06/07/16 09/02/14 History Butalb/Acetamin/Caff 50-325-40 1 tab PO Q6HR PRN 08/18/15 06/07/16 Unknown History [Fioricet] Nortriptyline [Pamelor] 50 mg PO QHS 08/18/15 06/07/16 Unknown History Lyrica 1 tab PO DAILY 02/08/16 06/07/16 Unknown History oxyCODONE /ACETAMINOPHEN [Percocet 1 tab PO Q6HR PRN #10 tablet 02/08/16 06/07/16 Unknown Rx 5/325 mg] Fenofibrate [Lofibra] 54 mg PO QDAY 06/07/16 06/07/16 Unknown History traMADoL [Ultram] 50 mg PO Q12H PRN 06/07/16 06/07/16 Unknown History Gabapentin 300 mg PO BID #60 capsule 03/31/17 Unknown Rx Nitrofurantoin Monohyd/M-Cryst 100 mg PO BID #10 capsule 03/31/17 Unknown Rx [Macrobid 100 mg Capsule] amLODIPine 5 mg PO DAILY #30 tab 03/31/17 Unknown Rx lisinopriL [Zestril TAB] 20 mg PO QDAY #30 tablet 03/31/17 Unknown Rx Review of Systems Constitutional: no fever, no chills Ears, nose, mouth and throat: no nasal congestion, no sore throat Cardiovascular: no chest pain, no palpitations Respiratory: no cough, no shortness of breath Gastrointestinal: no abdominal pain, no nausea, no vomiting, no diarrhea Genitourinary Female: no pelvic pain, no flank pain, no dysuria Musculoskeletal: no neck pain, no low back pain Integumentary: no rash, no pruritis Neurological: numbness (Left hand numbness/weakness), headaches, no confusion Endocrine: no polyphagia, no polydipsia, no polyuria Exam - Constitutional Vitals: Temp Pulse Resp BP Pulse Ox 98.5 F 86 23 184/99 96 02/16/22 12:12 02/17/22 04:40 02/17/22 04:40 02/17/22 04:40 02/17/22 04:43 General appearance: Present: no acute distress, well-nourished - EENT Eyes: Present: PERRL, EOM intact. Absent: scleral icterus ENT: hearing intact, clear oral mucosa, dentition normal - Neck Neck: Present: supple, normal ROM - Respiratory Respiratory effort: normal Respiratory: bilateral: CTA - Cardiovascular Rhythm: regular Heart Sounds: Present: S1 & S2. Absent: gallop, systolic murmur, diastolic murmur, rub, click - Extremities Extremities: no ischemia, pulses intact, pulses symmetrical, No edema, normal temperature, normal color, Full ROM Peripheral Pulses: within normal limits - Abdominal General gastrointestinal: Present: soft, non-tender, non-distended, normal bowel sounds. Absent: mass - Integumentary Integumentary: Present: clear, warm, dry, normal turgor. Absent: rash - Musculoskeletal Musculoskeletal: left sided weakness - Psychiatric Psychiatric: appropriate mood/affect, intact judgment & insight, memory intact, cooperative - Neurologic Neurologic: CNII-XII intact, moves all extremities, other (Strength on the left upper and lower extremity 3/5) HEART Score - HEART Score Troponin: Troponin T < 0.010 ng/mL (0.00-0.029) 02/16/22 12:28 Results - Labs CBC & Chem 7: 02/16/22 12:28 02/16/22 12:28 Labs: Abnormal lab results 02/16/22 02/16/22 02/16/22 Range/Units 12:07 12:28 12:28 Lymph % (Auto) 38.0 H (13.4-35.0) % Eos % (Auto) 5.0 H (0.0-4.3) % Glucose 119 H (65-100) mg/dL POC Glucose 125 H (70-105) mg/dL Assessment and Plan Assessment: 1. Left-sided weakness 2. History of multiple CVAs 3. Hypertension 4. Hyperlipidemia 5. Diabetes mellitus 6. History of seizures Plan: 1. Patient admitted onto the medical floor. Will monitor neuro status 2. Please schedule patient for carotid Doppler, MRI of the brain and ech ocardiogram 3. We will request neurology evaluation. 4. Patient started on daily aspirin and statin. 5. Patient placed on sliding scale insulin. We will monitor Accu-Cheks. 6. We will resume routine home medications. DVT prophylaxis: Subcutaneous heparin CODE STATUS: Full code
[2022-02-17] MEDS: INSULIN LISPRO 100 UNIT/ML SUB-Q SCH ×4 (07:33→23:09)
[2022-02-17] MEDS: HEPARIN 5,000 UNIT/1 ML VIAL SUB-Q SCH ×3 (07:41→21:48)
[2022-02-17] MEDS: GABAPENTIN 300 MG CAP PO SCH ×2 (09:30→21:47)
[2022-02-17] MEDS: ASPIRIN 325 MG TAB PO SCH (09:30)
[2022-02-17] MEDS ORDERED: LORazepam 2 MG/ML VIAL IV NR (10:00)
--- NOTE | 2022-02-17 11:14 | Vascular Lab Report ---
DUPLEX DOPPLER ULTRASOUND CAROTID, BILATERAL INDICATION / CLINICAL INFORMATION: stroke. COMPARISON: None available. FINDINGS: RIGHT CAROTID: - PLAQUE ESTIMATE (%): > 50% - CCA velocity: 77.4 cm/sec. - ICA peak systolic velocity: 193.3 cm/sec. - ICA/CCA PSV Ratio: 2.5 Right Vertebral Artery: Antegrade flow. LEFT CAROTID: - PLAQUE ESTIMATE: < 50% - CCA velocity: 80 cm/sec. - ICA peak systolic velocity: 137 cm/sec. - ICA/CCA PSV Ratio: 1.71 Left Vertebral Artery: Antegrade flow. IMPRESSION: 1. Right Internal Carotid Artery: 50-69% diameter stenosis. 2. Left Internal Carotid Artery: 50-69% diameter stenosis. Velocity criteria are extrapolated from diameter data as defined by the Society of Radiologists in Ul trasound Consensus Conference, Radiology 2003; 229;340-346. NO STENOSIS (NORMAL) * Plaque = none; ICA PSV < 125 cm/sec; ICA/CCA PSV Ratio < 2.0 <50% STENOSIS * Plaque < 50%; ICA PSV < 125 cm/sec; ICA/CCA PSV Ratio < 2.0 50-69% STENOSIS * Plaque > 50%; ICA PSV = 125-230 cm/sec; ICA/CCA PSV Ratio = 2.0-4.0 >70% BUT <100% STENOSIS * Plaque > 50%; ICA PSV > 230 cm/sec; ICA/CCA PSV Ratio > 4.0 NEAR OCCLUSION * Plaque = visible lumen; ICA PSV = high/low/none; ICA/CCA PSV Ratio = variable TOTAL OCCLUSION * Plaque = no lumen; ICA PSV = none; ICA/CCA PSV Ratio = N/A Signer Name: Adiel uKmar MD Signed: 02/17/2022 11:10 AM Workstation Name: [id number]
[2022-02-17] MEDS ORDERED: BUTALB/ACETAMINOPHEN/CAFFEINE TAB PO PRN (12:00)
--- NOTE | 2022-02-17 13:30 | Event Note ---
Date: 02/17/22 Patient seen and examined at the bedside. Labs and imaging reviewed in EMR. We discussed findings of PE echocardiogram, carotid Doppler and CT head. Patient currently waiting for result of MRI. We discussed current care plan evaluation agreeable tentative discharge later today or tomorrow pending neurology evaluation.
[2022-02-17 13:49] LABS: Chol/HDL Ratio 6.75 %; HDL Cholesterol 57 mg/dL (40-59); LDL Cholesterol,Direct TNR mg/dL (50-130)
--- NOTE | 2022-02-17 15:18 | Magnetic Resonance Report ---
MR brain wo con INDICATION / CLINICAL INFORMATION: stroke, rt sided weakness. TECHNIQUE: Multiplanar, multisequence MR images of the brain were obtained. COMPARISON: 02/16/2022 FINDINGS: INTRACRANIAL: No restricted diffusion. No hemorrhage. Ventricular caliber is normal. No extra-axial c ollection. No mass. No herniation. Major intracranial vascular flow voids are preserved. Normal scat tered T2 white matter hyperintensities most consistent with minimal sequela of chronic microvascular disease. ORBITS: No significant abnormality of visualized orbits. SINUSES / MASTOIDS: Minimal mucosal thickening seen in the ethmoid air cells. Trace left mastoid effu oziel. ADDITIONAL FINDINGS: None. IMPRESSION: 1. No significant intracranial abnormality. Signer Name: Kai Grey MD Signed: 02/17/2022 3:14 PM Workstation Name: [id number]
--- NOTE | 2022-02-17 16:02 | Consultation ---
History of Present Illness Consult date: 02/17/22 Chief complaint: Seizure History of present illness: 61-year-old female with known history of multiple CVAs, pretension, diabetes mellitus and history of seizure disorder presenting to the emergency room today planing of headache and left-sided weakness. Patient has had residual weakness on the left side from a previous stroke however, weakness has increased over the past few days. The patient reports improvement in the headaches, there is weakness on the left upper and lower extremity. The patient reports frequent COLLADO . Past History Past Medical History: arthritis, diabetes, hypertension, seizures, stroke, other (chronic back and neck pain. anyerism. brain tumor (meningioma )) Past Surgical History: cholecystectomy, Other (Left ear surgery) Social history: smoking (Current daily smoker), alcohol abuse (Drinks alcohol occasionally) Family history: no significant family history Medications and Allergies Allergies Allergy/AdvReac Type Severity Reaction Status Date / Time Penicillins Allergy Rash Verified 02/16/22 12:14 Home Medications Medication Instructions Recorded Confirmed Last Taken Type Aspirin 325 mg PO QDAY 09/02/14 02/17/22 09/02/14 History Butalb/Acetamin/Caff 50-325-40 1 tab PO Q6HR PRN 08/18/15 02/17/22 Unknown History [Fioricet] Nortriptyline [Pamelor] 50 mg PO QHS 08/18/15 02/17/22 Unknown History traMADoL [Ultram] 50 mg PO Q12H PRN 06/07/16 02/17/22 Unknown History Gabapentin 300 mg PO BID #60 capsule 03/31/17 02/17/22 Unknown Rx Ezetimibe [Zetia] 10 mg PO DAILY 02/17/22 02/17/22 Unknown History NIFEdipine [Nifedipine ER] 60 mg PO DAILY 02/17/22 02/17/22 Unknown History hydroCHLOROthiazide 6.25 mg PO DAILY 02/17/22 02/17/22 Unknown History [Hydrochlorothiazide] metFORMIN [Glucophage] 500 mg PO BID 02/17/22 02/17/22 Unknown History Active Meds: Active Medications Acetaminophen (Acetaminophen 325 Mg Tab) 650 mg PO Q4H PRN PRN Reason: Pain MILD(1-3)/Fever >100.5/COLLADO Acetaminophen/Butalbital/Caffeine (Butalb/Acetaminophen/Caffeine Tab) 1 tab PO Q6HR PRN PRN Reason: Headache Aspirin (Aspirin 325 Mg Tab) 325 mg PO QDAY [facility] Last Admin: 02/17/22 09:30 Dose: 325 mg Atorvastatin Calcium (Atorvastatin 40 Mg Tab) 40 mg PO QHS [facility] Bisacodyl (Bisacodyl 10 Mg Rect Supp) 10 mg AK QDAY PRN PRN Reason: Constipation Dextrose (Dextrose 50% In Water (25gm) 50 Ml Syringe) 50 ml IV Q30MIN PRN; Protocol PRN Reason: Hypoglycemia Gabapentin (Gabapentin 300 Mg Cap) 300 mg PO BID [facility] Last Admin: 02/17/22 09:30 Dose: 300 mg Heparin Sodium (Porcine) (Heparin 5,000 Unit/1 Ml Vial) 5,000 unit SUB-Q Q8HR [facility] Last Admin: 02/17/22 13:13 Dose: 5,000 unit Insulin Human Lispro (Insulin Lispro 100 Unit/Ml) 0 unit SUB-Q ACHS [facility]; Jesse col Last Admin: 02/17/22 12:30 Dose: Not Given Magnesium Hydroxide (Magnesium Hydroxide (Mom) Oral Liqd Udc) 30 ml PO Q4H PRN PRN Reason: Constipation Metoclopramide HCl (Metoclopramide 10 Mg Tab) 10 mg PO Q6H PRN PRN Reason: Nausea And Vomiting Morphine Sulfate (Morphine 2 Mg/1 Ml Inj) 2 mg IV Q4H PRN PRN Reason: Pain, Moderate (4-6) Morphine Sulfate (Morphine 4 Mg/1 Ml Inj) 4 mg IV Q4H PRN PRN Reason: Pain , Severe (7-10) Nortriptyline HCl (Nortriptyline 25 Mg Cap) 50 mg PO QHS [facility] Ondansetron HCl (Ondansetron 4 Mg/2 Ml Inj) 4 mg IV Q8H PRN PRN Reason: Nausea And Vomiting Promethazine HCl (Promethazine 25 Mg Rect Supp) 25 mg AK Q6H PRN PRN Reason: Nausea And Vomiting Sodium Chloride (Sodium Chloride 0.9% 10 Ml Flush Syringe) 10 ml IV BID [facility] Last Admin: 02/17/22 09:33 Dose: 10 ml Sodium Chloride (Sodium Chloride 0.9% 10 Ml Flush Syringe) 10 ml IV PRN PRN PRN Reason: LINE FLUSH Physical Examination - Vital Signs Vital Signs: Vital Signs Temp Pulse Resp BP Pulse Ox 98.5 F 66 18 153/107 99 02/16/22 12:12 02/16/22 12:12 02/16/22 12:12 02/16/22 12:12 02/16/22 12:12 - Physical Exam Narrative exam: The patient is alert , the patient moves all 4 extremity , Gait is broad based . No cranial nerve abnormality . Results - Laboratory Findings CBC and BMP: 02/16/22 12:28 02/16/22 12:28 Abnormal Lab Findings: Abnormal Labs 02/16/22 02/16/22 02/16/22 12:07 12:28 12:28 Lymph % (Auto) 38.0 H Eos % (Auto) 5.0 H Glucose 119 H POC Glucose 125 H Hemoglobin A1c Triglycerides Cholesterol 02/17/22 02/17/22 02/17/22 07:32 13:17 13:17 Lymph % (Auto) Eos % (Auto) Glucose POC Glucose 108 H Hemoglobin A1c 6.2 H Triglycerides 420 H Cholesterol 385 H Assessment and Plan 1. CVA ( no evidence new CVA - MRI Brain no evidence of New CVA ) 2. Clinical Suspicion is more towards - Complex Migraine . 3. Continue All Home Medications . 4. Patient needs to be placed back on Gabapentin 300 mg 1 tab BID and have her see Dr. Bolanos Patients Neurologist . 5. Risk Factors for CVA Discussed . Dr. Ray
[2022-02-17] MEDS ORDERED: NORTRIPTYLINE 25 MG CAP PO SCH (22:00)
[2022-02-18 05:34] LABS: Basophils # (Auto) 0.1 K/mm3 (0.0-0.1); Eosinophils # (Auto) 0.5 K/mm3 (0.0-0.4); Eosinophils % (Auto) 8.7 % (0.0-4.3); Hematocrit 40.4 % (30.3-42.9); Hemoglobin 13.2 gm/dl (10.1-14.3); Lymphocytes # (Auto) 2.3 K/mm3 (1.2-5.4); Lymphocytes % (Auto) 41.1 % (13.4-35.0); Mean Corpuscular HGB Conc 33 % (30-34); Mean Corpuscular Volume 92 fl (79-97); Monocytes # (Auto) 0.4 K/mm3 (0.0-0.8); Monocytes % (Auto) 6.4 % (0.0-7.3); Platelet Count 320 K/mm3 (140-440); Red Blood Count 4.37 M/mm3 (3.65-5.03); Red Cell Distribution Width 14.7 % (13.2-15.2)
[2022-02-18 05:55] LABS: Calcium 8.7 mg/dL (8.4-10.2)
[2022-02-18] MEDS: HEPARIN 5,000 UNIT/1 ML VIAL SUB-Q SCH ×2 (06:10→14:52)
--- NOTE | 2022-02-18 08:11 | Discharge Summary ---
Providers - Providers Date of Admission: 02/17/22 05:11 Date of discharge: 02/18/22 Attending physician: CINDI BEDOLLA MD 02/17/22 05:11 Consult to Dietitian/Nutrition [CONS] Routine Physician Instructions: Reason For Exam: Reason for Consult: Diet education Consult to Dietitian/Nutrition [CONS] Routine Physician Instructions: Reason For Exam: Reason for Consult: Nutrition Recommendations Reason for Consult: Diet education Occupational Therapy Evaluate and Treat [CONS] Routine Comment: Reason For Exam: Neuro deficits Physical Therapy Evaluation and Treat [CONS] Routine Comment: Reason For Exam: Neuro deficits 02/17/22 05:16 Speech Therapy Evaluation and Treat [CONS] Routine Reason For Exam: swallow eval 02/17/22 08:30 Consult to Physician [CONS] Routine Comment: Consulting Provider: RICKI OLIVER Physician Instructions: Reason For Exam: CVA rule out Primary care physician: [employer] Hospitalization Reason for admission: CVA rule out Condition: Good Hospital course: 61-year-old female with history of CVAs, hypertension and diabetes mellitus who presented with headache and left-sided weakness. She was admitted for CVA rule out. CT head was negative for acute abnormality. MRI of the brain showed no significant intracranial abnormality. Carotid Doppler showed 50-69 diameter stenosis bilaterally. Echocardiogram showed left ventricular ejection fraction of 50 to 55% and did not demonstrate PFO. Neurology was consulted and recommen ded continuing home medications. Once clinically stable, she was discharged home. Disposition: HOME HEALTH CARE SERVICE Final Discharge Diagnosis (Prints w/discharge instructions): CVA ruled out. Complex migraine. History of multiple CVAs. Hypertension. Hyperlipidemia. Type 2 diabetes mellitus. History of seizure disorder Time spent for discharge: 40 minutes Core Measure Documentation - Palliative Care Palliative Care/ Comfort Measures: Not Applicable - Core Measures Any of the following diagnoses?: history only Exam - Physical Exam Narrative exam: GENERAL: Well-developed well-nourished. In no acute distress. HEENT: Normocephalic. Atraumatic. NECK: Supple. CHEST/LUNGS: CTAB on room air HEART/CARDIOVASCULAR: RRR. No murmur, rubs or gallops appreciated. ABDOMEN: +BS. NT/ND. SKIN: No rashes noted. NEURO: L sided upper and lower extremity weakness. MUSCULOSKELETAL: No joint effusion EXTREMITIES: No cyanosis, clubbing or edema. PSYCH: Cooperative. - Constitutional Vitals: Temp Pulse Resp BP Pulse Ox 97.5 F L 77 18 182/93 97 02/17/22 23:10 02/17/22 23:10 02/17/22 23:10 02/17/22 23:10 02/18/22 00:40 Plan Care Plan Goals: Please follow-up with your primary care provider and neurologist at your earliest convenience. All of our imaging does not show evidence of new stroke. We are concerned that she may have had a complex migraine or a transient ischemic attack. It is important that you keep your blood pressure under control. If you can, purchase a blood pressure cuff and measure your blood pressure at least once a day. Record your numbers and take them with you to your next primary care appointment. Smoking increases your risk of stroke. We recommend that you quit smoking as soon as possible to reduce this risk. Please take all medications as they are prescribed to you. Follow up with: PRIMARY MD MAC [Primary Care Provider] - 7 Days ESEQUIEL ESCOBAR MD [Staff Physician] - 7 Days Prescriptions: AtorvaSTATin [Lipitor] 40 mg PO QHS 90 Days #90 tablet Aspirin 325 mg PO QDAY 30 Days #30 tab NIFEdipine [Nifedipine ER] 60 mg PO DAILY 90 Days #90 tab Other Discharge Orders: Physicial Therapy (Amb) Location: None Selected Physicial Therapy (Amb) Location: None Selected
[2022-02-18] MEDS: INSULIN LISPRO 100 UNIT/ML SUB-Q SCH ×2 (08:30→12:02)
[2022-02-18] MEDS: ASPIRIN 325 MG TAB PO SCH (09:56)
[2022-02-18] MEDS: GABAPENTIN 300 MG CAP PO SCH (09:57)
[2022-02-18] MEDS ORDERED: EZETIMIBE 10 MG TAB PO SCH (10:00)
[2022-02-18] MEDS ORDERED: NON-FORMULARY EACH (Nifedipine [Nifedipine Er] 60 MG Tablet.Er) PO SCH (10:00)
[2022-02-18] MEDS ORDERED: NON-FORMULARY EACH (Hydrochlorothiazide [Hydrochlorothiazide] 12.5 MG Tablet) PO SCH (10:00)
[2022-02-18] MEDS ORDERED: NIFEdipine XL 60 MG TAB PO SCH (10:00)
[2022-02-18] MEDS ORDERED: hydrALAZINE 20 MG/1 ML INJ IV ONE (11:28)
[2022-02-18 13:41] VITALS: BP 168/75
== END 2022-02-18 14:21 | disposition home health service (06) | DRG 103 ==
LOC: ED 11:46 → 4A 02-17 05:11
PROVIDERS: ADMIT Internal Medicine Geriatric Medicine; ATTEND Student in an Organized Health Care Education/Training Program
DX: G43.909 Migraine, unspecified, not intractable, without status migrainosus (principal); J44.1 Chronic obstructive pulmonary disease with (acute) exacerbation; G81.94 Hemiplegia, unspecified affecting left nondominant side; E78.5 Hyperlipidemia, unspecified; I10 Essential (primary) hypertension; E11.9 Type 2 diabetes mellitus without complications; M19.90 Unspecified osteoarthritis, unspecified site; F17.200 Nicotine dependence, unspecified, uncomplicated; Z79.899 Other long term (current) drug therapy; Z90.49 Acquired absence of other specified parts of digestive tract; Z79.82 Long term (current) use of aspirin; Z88.0 Allergy status to penicillin
CPT/HCPCS: 36415; 70450; 70551; 80048; 80053; 80061; 82550; 82553; 82962; 83036; 84443; 84484; 85025; 85610; 85670; 85730; 93005; 93306; 93880; 94644; G0378; C8929; J0360; J1644; J2060; J2405